=== PATIENT | male | born 1950 ===

== ENCOUNTER 2017-03-26 19:09 | Emergency (ER) | payer MEDICARE, OTHER ==
[2017-03-26 19:50] VITALS: TEMP 97.8; O2SAT 98
[2017-03-26] MEDS ORDERED: TDAP Vaccine 0.5 mL Syr IM ONE (19:59)
--- NOTE | 2017-03-26 20:07 | ED PDOC ---
Arrival/HPI - General Chief Complaint: Trauma Time Seen by Provider: 03/26/17 19:42 Historian: Patient, Family (daughter) - History of Present Illness Narrative History of Present Illness (Text): 03/26/17 19:59 This 67 yo male with pmh htn, bph, s/p cervical spine fusion, presents to this Emergency department requesting neck and lower back x-rays. Patient stated he tripped and fell down on his buttock, then [place] Patient called his spine surgeon who recommended to go to the Emergency department to have these x-rays. Patient denies loc, diplopia, headache, dizziness, dysarthria, dysphagia, weakness, paresthesias, /GI incontinence, saddle anesthesia, urinary retention, leg swelling, cp, sob, abdominal pain, or abnormal gait. Patient admits a mild chronic weakness of his left leg for "long time" due to a lower back "pinch nerve". Time/Duration: Other (early today) Context: Home Past Medical History - Provider Review Nursing Documentation Reviewed: Yes - Cardiac Hx Hypertension: Yes - Psychiatric Hx Substance Use: No - Surgical History Other/Comment: spinal fusion - Anesthesia Hx Anesthesia: Yes Hx Anesthesia Reactions: No Hx Malignant Hyperthermia: No Family/Social History - Physician Review Nursing Documentation Reviewed: Yes Family/Social History: Other (noncontributory) Smoking Status: Never Smoked Hx Alcohol Use: No Hx Substance Use: No Allergies/Home Meds Allergies/Adverse Reactions: Allergies No Known Allergies Allergy (Verified 03/26/17 19:41) Review of Systems - Review of Systems Constitutional: Normal. absent: Fatigue, Weight Change, Fevers, Night Sweats Eyes: Normal ENT: Normal Respiratory: Normal. absent: SOB, Cough Cardiovascular: Normal. absent: Chest Pain, Palpitations Gastrointestinal: Normal Genitourinary Male: Normal Musculoskeletal: Back Pain, Neck Pain, Other (See hpi) Skin: Normal Neurological: Normal Endocrine: Normal Hemo/Lymphatic: Normal Psychiatric: Normal Physical Exam Vital Signs Temp Pulse Resp BP Pulse Ox 03/26/17 19:43 97.8 F 66 18 156/67 H 98 Temperature: Afebrile Blood Pressure: Normal Pulse: Regular Respiratory Rate: Normal Appearance: Positive for: Well-Appearing, Non-Toxic, Comfortable Pain Distress: None Mental Status: Positive for: Alert and Oriented X 3 - Systems Exam Head: Present: Atraumatic, Normocephalic Pupils: Present: PERRL Extroacular Muscles: Present: EOMI Conjunctiva: Present: Normal Mouth: Present: Moist Mucous Membranes Neck: Present: Normal Range of Motion (limited due to a [place] j collar weared by pt), Trachea Midline. No: MIDLINE TENDERNESS, Paraspinal Tenderness Respiratory/Chest: Present: Clear to Auscultation, Good Air Exchange. No: Respiratory Distress, Accessory Muscle Use Cardiovascular: Present: Regular Rate and Rhythm, Normal S1, S2. No: Murmurs Abdomen: Present: Normal Bowel Sounds. No: Tenderness, Distention, Peritoneal Signs Back: Present: Normal Inspection. No: CVA Tenderness, Midline Tenderness, Paraspinal Tenderness, Pain with Leg Raise Upper Extremity: Present: Normal Inspection. No: Cyanosis, Edema Lower Extremity: Present: Normal Inspection. No: Edema Neurological: Present: GCS=15, CN II-XII Intact, Speech Normal, Motor Func Grossly Intact, Normal Sensory Function, Normal Cerebellar Funct, Gait Normal Skin: Present: Warm, Dry, Normal Color. No: Rashes Psychiatric: Present: Alert, Oriented x 3, Normal Insight, Normal Concentration Medical Decision Making ED Course and Treatment: 03/26/17 20:09 Patient was offered to have a CT of head , however, patient refused to have this test done. Due to the low index of suspicion for ICH, I agreed with pt not to have CT scan of head. Patient refused pain medication. 03/26/17 21:01 Re-evaluation. Patient feels better. Discussed results and plan with patient who expresses understanding. All questions answered and there is agreement with the plan to discharge home with instructions. Patient stable for discharge. Return if symptoms persist or worsen. Patient has a normal gait. Re-evaluation Time: 21:01 Reassessment Condition: Re-examined, Improved - RAD Interpretation Radiology Orders: 03/26/17 19:58 CERVICAL SPINE >18YR W/OBLIQUE [RAD] Stat LS SPINE WITH OBL > 18 YRS OLD [RAD] Stat - Medication Orders Current Medication Orders: Discontinued Medications Tetanus/Reduced Diphtheria/Acell Pertussis (Boostrix Vaccine Inj) 0.5 ml IM .ONCE ONE Stop: 03/26/17 20:00 Disposition/Present on Arrival - Present on Arrival Any Indicators Present on Arrival: No History of DVT/PE: No History of Uncontrolled Diabetes: No Urinary Catheter: No History of Decub. Ulcer: No History Surgical Site Infection Following: None - Disposition Have Diagnosis and Disposition been Completed?: Yes Diagnosis: Fall, Back pain, Cervical strain Disposition: HOME/ ROUTINE Disposition Time: 21:03 Patient Plan: Discharge Condition: GOOD Discharge Instructions (ExitCare): Cervical Sprain (ED), Back Pain (ED) Additional Instructions: Call private doctor for follow up visit in 1-2 days. Take medication as instructed by your doctor. Return to emergency if symptoms worsen, difficulty walking, urinary incontinence, bowel incontinence, worsen of pain Referrals: Miguel Bruno MD [Primary Care Provider] - Follow up with primary Forms: [facility] (Romanian)
[2017-03-26 22:00] VITALS: BP 149/87; PULSE 60; RESP 16
--- NOTE | 2017-03-27 08:40 | RAD ---
PROCEDURE: Cervical Spine Radiographs. HISTORY: Pain. COMPARISON: None. FINDINGS: BONES: Patient status post multilevel posterior spinal fusion including paired transpedicular screws at C3, C4, C7 and T1 combined with interconnecting rods in each side. Solitary left C5 screw is also present attached to the left-sided nereida. Mild bilateral C4 and C5 root foraminal stenoses are appreciated on degenerative basis. No fracture or spondylolisthesis appreciated on acute basis. Multilevel spondylosis appears advanced and relatively diffuse. Prevertebral soft tissues appear unremarkable. The odontoid process is intact. No destructive bony lesion identified. OTHER FINDINGS: None. IMPRESSION: Status post multilevel cervical fusion without definite fracture or spondylolisthesis appreciated on acute basis. Multilevel spondylosis appreciated diffusely. Multilevel neural foraminal stenoses are appreciated on a mild basis.
--- NOTE | 2017-03-27 08:43 | RAD ---
PROCEDURE: Radiographs of the Lumbar Spine. HISTORY: pain s/p fall COMPARISON: No prior. FINDINGS: BONES: There is a possible right S1 spondylolysis. Limited L5-S1 spondylolisthesis appreciate with L5 slightly anterior to S1. Curvature here is hyper lordotic. No destructive bony lesion is appreciated. Advanced degenerative disease is seen at the inferior lumbar spine as otherwise [id number] in severity at the remainder of the lumbar spine. Vertebral body heights are normal throughout. Disc height loss is prominent L4-5 and L5-S1. . Unremarkable. OTHER FINDINGS: None. IMPRESSION: Right spondylolysis questioned S1 with grade 1 spondylolisthesis identified at L5-S1. Severe degenerative disease seen at L4-5 and L5-S1 and is [id number] the upper mid lumbar levels. Follow-up MRI or CT may be useful for further characterization.
== END 2017-03-26 21:56 | disposition home or self-care (01) ==
LOC: ED 19:09
DX: S16.1XXA Strain of muscle, fascia and tendon at neck level, initial encounter (principal); W01.198A Fall on same level from slipping, tripping and stumbling with subsequent striking against other object, initial encounter; Y92.520 Airport as the place of occurrence of the external cause; M54.5 Low back pain; Z23 Encounter for immunization